=== PATIENT | female | born 1990 | race Caucasian/White ===

== ENCOUNTER → 2018-02-11 | Outpatient (CLI) | payer OTHER, SELFPAY ==
[2018-02-11 10:51] LABS: Alanine Aminotransfer (ALT/SGP 37 U/L (12-78); Albumin, Blood 4.1 g/dL (3.4-5.0); Albumin/Globulin Ratio 1.1 (0.8-1.8); Alk Phos 98 U/L (40-126); Anion Gap 10 mmol/L (6-16); Aspartate Aminotrans (AST/SGOT 16 U/L (12-37); Bilirubin, Total 0.2 mg/dL (0.1-1.0); Blood Urea Nitrogen 9 mg/dL (8-24); Bun/Creatinine Ratio 14.1 (12.0-20.0); CO2, Blood 27 mmol/L (21-32); Calcium, Blood 9.5 mg/dL (8.5-10.1); Chloride, Blood 105 mmol/L (98-108); Creatinine, Blood 0.64 mg/dL (0.40-1.00); Globulin, Blood 3.9 g/dL (2.2-4.0); Glomerular Filtration Rate >60 (60-); Glucose, Blood 99 mg/dL (70-99); Potassium, Blood 3.9 mmol/L (3.5-5.5); Sodium, Blood 142 mmol/L (136-145)
[2018-02-11 11:15] LABS: BASOPHILS ABSOLUTE AUTO 0.02 K/mm3 (0.00-0.23); BASOPHILS PERCENT AUTO 0 % (0-2); EOSINOPHILS ABSOLUTE AUTO 0.06 K/mm3 (0.00-0.68); EOSINOPHILS PERCENT AUTO 1 % (0-6); Hematocrit 41.1 % (33.0-51.0); Hemoglobin 13.7 g/dL (11.5-16.0); IMMATURE GRAN ABSOLUTE AUTO 0.02 K/mm3 (0.00-0.10); IMMATURE GRAN PERCENT AUTO 0 % (0-1); LYMPHOCYTES ABSOLUTE AUTO 1.78 K/mm3 (0.84-5.20); LYMPHOCYTES PERCENT AUTO 27 % (21-46); MONOCYTES ABSOLUTE AUTO 0.64 K/mm3 (0.16-1.47); MONOCYTES PERCENT AUTO 10 % (4-13); Mean Corpuscular HGB 30.7 pg (26.0-34.0); Mean Corpuscular HGB Conc 33.3 g/dL (31.5-36.5); Mean Corpuscular Volume 92 fL (80-100); Mean Platelet Volume 10.3 fL (9.1-12.4); NEUTROPHILS ABSOLUTE AUTO 4.08 K/mm3 (1.96-9.15); NEUTROPHILS PERCENT AUTO 62 % (41-73); Platelet Count 266 K/mm3 (150-400); RDW Coefficient Variation 12.3 % (11.7-14.2); RDW Standard Deviation 41.7 fL (35.1-46.3); Red Blood Cell Count 4.46 M/mm3 (3.80-5.20)
== END | disposition home or self-care (01) ==
LOC: LAB EV 10:26
PROVIDERS: Physician Assistant
DX: N93.9 Abnormal uterine and vaginal bleeding, unspecified (principal)
CPT/HCPCS: 80053; 84702; 85025

== ENCOUNTER → 2019-06-08 | Outpatient (CLI) | payer OTHER ==
[2019-06-11 07:07] LABS: CHLAMYDIA TRACHOMATIS, NAA Negative (Negative); NEISSERIA GONORRHOEAE, NAA Negative (Negative)
== END ==
LOC: LAB SHORT 19:00 → LAB 19:00
PROVIDERS: Registered Nurse Community Health
DX: Z01.419 Encounter for gynecological examination (general) (routine) without abnormal findings (principal); Z12.4 Encounter for screening for malignant neoplasm of cervix; Z31.69 Encounter for other general counseling and advice on procreation; Z30.09 Encounter for other general counseling and advice on contraception; N89.8 Other specified noninflammatory disorders of vagina
CPT/HCPCS: 87070; 87205; 87491; 87591; G0123

== ENCOUNTER → 2019-08-23 | Outpatient (CLI) | payer OTHER ==
[2019-08-25 01:06] LABS: CHLAMYDIA TRACHOMATIS, NAA Negative (Negative); NEISSERIA GONORRHOEAE, NAA Negative (Negative)
== END ==
LOC: LAB 10:00 → LAB SHORT 10:00
PROVIDERS: Registered Nurse Community Health
DX: Z11.3 Encounter for screening for infections with a predominantly sexual mode of transmission (principal)
CPT/HCPCS: 87491; 87591

== ENCOUNTER 2020-01-15 02:56 | Observation (INO) | payer OTHER ==
[2020-01-15 04:20] LABS: BASOPHILS ABSOLUTE AUTO 0.03 K/mm3 (0.00-0.23); BASOPHILS PERCENT AUTO 0 % (0-2); EOSINOPHILS ABSOLUTE AUTO 0.01 K/mm3 (0.00-0.68); EOSINOPHILS PERCENT AUTO 0 % (0-6); Hematocrit 33.4 % (33.0-51.0); Hemoglobin 11.1 g/dL (11.5-16.0); IMMATURE GRAN ABSOLUTE AUTO 0.17 K/mm3 (0.00-0.10); IMMATURE GRAN PERCENT AUTO 1 % (0-1); LYMPHOCYTES ABSOLUTE AUTO 1.26 K/mm3 (0.84-5.20); LYMPHOCYTES PERCENT AUTO 8 % (21-46); MONOCYTES ABSOLUTE AUTO 1.43 K/mm3 (0.16-1.47); MONOCYTES PERCENT AUTO 9 % (4-13); Mean Corpuscular HGB 30.9 pg (26.0-34.0); Mean Corpuscular HGB Conc 33.2 g/dL (31.5-36.5); Mean Corpuscular Volume 93 fL (80-100); Mean Platelet Volume 10.1 fL (9.1-12.4); NEUTROPHILS ABSOLUTE AUTO 13.11 K/mm3 (1.96-9.15); NEUTROPHILS PERCENT AUTO 82 % (41-73); Platelet Count 209 K/mm3 (150-400); RDW Coefficient Variation 13.4 % (11.7-14.2); RDW Standard Deviation 45.4 fL (35.1-46.3); Red Blood Cell Count 3.59 M/mm3 (3.80-5.20); White Blood Cell Count 16.01 K/mm3 (4.00-11.30)
[2020-01-15 04:38] LABS: Alanine Aminotransfer (ALT/SGP 14 U/L (12-78); Albumin, Blood 2.6 g/dL (3.4-5.0); Albumin/Globulin Ratio 0.6 (0.8-1.8); Alk Phos 122 U/L (50-136); Anion Gap 9 mmol/L (6-16); Aspartate Aminotrans (AST/SGOT 14 U/L (12-37); Bilirubin, Total 0.4 mg/dL (0.1-1.0); Blood Urea Nitrogen 5 mg/dL (8-24); Bun/Creatinine Ratio 11.4 (12.0-20.0); CO2, Blood 21 mmol/L (21-32); Calcium, Blood 8.4 mg/dL (8.5-10.1); Chloride, Blood 108 mmol/L (98-108); Creatinine, Blood 0.44 mg/dL (0.40-1.00); Globulin, Blood 4.1 g/dL (2.2-4.0); Glomerular Filtration Rate >60 (60-); Glucose, Blood 99 mg/dL (70-99); Potassium, Blood 3.7 mmol/L (3.5-5.5); Sodium, Blood 138 mmol/L (136-145); Total Protein, Blood 6.7 g/dL (6.4-8.2)
[2020-01-15 06:03] LABS: Influenza A Negative (NEGATIVE); Influenza B Negative (NEGATIVE)
--- NOTE | 2020-01-15 08:06 | NUR ---
PATIENT STATES HEADACHE THE SAME BUT NAUSEA BETTER
--- NOTE | 2020-01-15 09:00 | NUR ---
states increase pain in lower back and hips, biox 96% up to void, virgie called left message to call back about pain medication
--- NOTE | 2020-01-15 13:34 | NUR ---
Pt gave this student verbal consent to treat on 01/15/2020.
--- NOTE | 2020-01-15 14:05 | NUR ---
report to terell pacheco
--- NOTE | 2020-01-15 14:43 | NUR ---
CALLED TO ROOM PT VOMITIED AND VOID IN BED STATES SHE WAS SLEEPING AND WOKE UP VOMITING
--- NOTE | 2020-01-15 14:50 | NUR ---
PT UP TO SHOWER CRYING OUT OF CONTROL STATES HEADACHE IS KILLING HER. LIGHT DIMMED DOWN
--- NOTE | 2020-01-15 15:04 | NUR ---
PT REQUESTING PO TYLENOL, TYLENOL 1000MG PO GIVEN PT OUT OF SHOWER STILL TEARFUL
--- NOTE | 2020-01-15 15:47 | NUR ---
PT BOYFRIEND AT BEDSIDE, PT NO LONGER CRYING STATES HEADACHED IS 8/10, ACCEPTABLE PAIN LEVEL 2/10, MORPHINE 10MG AND PHENERGAN 25MG GIVEN IM LEFT HIP PT TOLERATED INJECTION WELL STATES MEDICATION KUMARI AFTER INJECTION.
--- NOTE | 2020-01-15 16:12 | NUR ---
1500 P/C FROM Felicia JORGENSEN [facility] SEE CURRENT ORDERS
--- NOTE | 2020-01-15 16:23 | NUR ---
REPORT TO Gema QUISPE RN, PT RESTING QUIETLY IN BED SO AT BEDSIDE
--- NOTE | 2020-01-15 18:28 | NUR ---
SENTHIL JORGENSEN HERE TO ASSESS PT. RX CALLEED TO [facility] DISCHARGE ORDER PLACED BY [facility] PT GIVEN DECISION AND PT CHOSE TO DC HOME
== END 2020-01-15 19:20 | disposition home or self-care (01) ==
LOC: OBS 02:56 → BC 02:57 → OBS 03:39 → BC 03:40 → OBS 18:50 → BC 18:50 → OBS 19:14 → BC 19:20
PROVIDERS: ADMIT Registered Nurse Community Health
DX: O99.89 Other specified diseases and conditions complicating pregnancy, childbirth and the puerperium (principal); N20.0 Calculus of kidney; Z3A.00 Weeks of gestation of pregnancy not specified
CPT/HCPCS: 36415; 59025; 76770; 76857; 80053; 81003; 82947; 83605; 85025; 87804; J2270; J2405; J2550; J7120

== ENCOUNTER → 2020-03-07 | Outpatient (CLI) | payer OTHER | LOC: LAB 18:10 → LAB SHORT 18:10 | DX: Z34.93 Encounter for supervision of normal pregnancy, unspecified, third trimester (principal) | CPT/HCPCS: 87081; 87653 ==

== ENCOUNTER → 2022-12-23 | Outpatient (CLI) | payer OTHER ==
[2022-12-24 08:13] LABS: HIV AB/P24 AG SCREEN Non Reactive (Non Reactive)
[2022-12-24 10:02] LABS: Candida species (DNA Probe) Negative (NEGATIVE); G. vaginalis (DNA Probe) Positive (NEGATIVE); T. vaginalis (DNA Probe) Negative (NEGATIVE)
[2022-12-24 15:08] LABS: HPV 16 Negative (Negative); HPV 18 Negative (Negative); HPV OTHER HR TYPES Negative (Negative)
[2022-12-25 09:10] LABS: CHLAMYDIA BY NAA Negative (Negative); GONOCOCCUS BY NAA Negative (Negative); TRICH VAG BY NAA Negative (Negative)
== END | disposition home or self-care (01) ==
LOC: LAB 12:45 → LAB SHORT 12:45
PROVIDERS: Registered Nurse Community Health
DX: Z12.4 Encounter for screening for malignant neoplasm of cervix (principal); Z72.51 High risk heterosexual behavior
CPT/HCPCS: 86592; 87389; 87480; 87491; 87510; 87591; 87624; 87660; 87661; G0145

== ENCOUNTER → 2023-10-20 | Outpatient (CLI) | payer OTHER ==
[2023-10-20 17:16] LABS: Source, Urine Clean Catch
[2023-10-20 18:53] LABS: Calcium Oxalate Crystals Many /hpf; Red Blood Cells, Urine 0-2 /hpf (0-2); Squamous Epithelial Cells Rare /hpf (Few)
[2023-10-20 18:54] LABS: Amorphous Light (0-Heavy); Bacteria Mod /hpf
== END ==
LOC: LAB SHORT 17:14
PROVIDERS: Registered Nurse Community Health
DX: Z34.82 Encounter for supervision of other normal pregnancy, second trimester (principal); Z3A.00 Weeks of gestation of pregnancy not specified
CPT/HCPCS: 81015; 87086

== ENCOUNTER → 2023-10-20 | Outpatient (CLI) | payer OTHER | LOC: LAB 17:38 → LAB SHORT 17:38 | DX: N89.8 Other specified noninflammatory disorders of vagina (principal) | CPT/HCPCS: 87070; 87205 ==

== ENCOUNTER → 2023-11-03 | Outpatient (CLI) | payer OTHER ==
[2023-11-03 17:22] LABS: Hematocrit 34.4 % (33.0-51.0); Hemoglobin 11.6 g/dL (11.5-16.0)
== END | disposition home or self-care (01) ==
LOC: LAB SHORT 15:38 → LAB 15:38
PROVIDERS: Registered Nurse Community Health
DX: Z34.82 Encounter for supervision of other normal pregnancy, second trimester (principal)
CPT/HCPCS: 82950; 85014; 85018